=== PATIENT | male | born 1960 | race Caucasian/White ===

== ENCOUNTER 2019-04-10 19:25 | Emergency (ER) | payer SELFPAY ==
[~2019-04-10] VITALS: Ht 157.5 cm; Wt 72.7 kg
[2019-04-10] MEDS ORDERED: PROPARACAINE HCL 0.5% 15 ML OPHTHALMIC SOLUTION OU ONE (20:15)
[2019-04-10] MEDS ORDERED: FLUORESCEIN SODIUM 1 MG STRIP OD ONE (20:15)
[2019-04-10 20:55] VITALS: BP 151/87
== END 2019-04-10 21:00 | disposition home or self-care (01) ==
LOC: EMS 19:27
DX: H10.213 Acute toxic conjunctivitis, bilateral (principal); H10.89 Other conjunctivitis; B99.9 Unspecified infectious disease